=== PATIENT | male | born 1945 | race Two or more races ===

== ENCOUNTER → 2017-12-03 | Outpatient (CLI) | payer SELFPAY ==
[2017-12-03 16:03] LABS: BASOPHILS % (AUTO) 1.3 % (0.0-2.0); EOSINOPHILS % (AUTO) 2.7 % (0.0-3.0); HEMATOCRIT 45.7 % (42.0-52.0); HEMOGLOBIN 15.8 G/DL (14.2-18.0); LYMPHOCYTES % (AUTO) 29.6 % (20.0-45.0); MEAN CORPUSCULAR VOLUME 83 FL (80-99); MONOCYTES % (AUTO) 7.5 % (1.0-10.0); NEUTROPHILS % (AUTO) 58.9 % (45.0-75.0); PLATELET COUNT 193 K/UL (150-450); RED BLOOD COUNT 5.48 M/UL (4.70-6.10); RED CELL DISTRIBUTION WIDTH 11.4 % (11.6-14.8); WHITE BLOOD COUNT 6.3 K/UL (4.8-10.8)
--- NOTE | 2017-12-03 16:16 | Diagnostic Imaging Report ---
Indication: Cough Technique: One view of the chest Comparison: none Findings: Suboptimal inspiration. Lungs and pleural spaces are clear. The heart size is normal. There is a right shoulder prosthesis Impression: No acute process
[2017-12-03 16:17] LABS: ANION GAP 8 mmol/L (5-15); BLOOD UREA NITROGEN 25 mg/dL (7-18); CALCIUM 8.3 MG/DL (8.5-10.1); CARBON DIOXIDE 29 MMOL/L (21-32); CHLORIDE 105 MMOL/L (98-107); CREATININE 1.1 MG/DL (0.55-1.30); SODIUM 142 MMOL/L (136-145)
[2017-12-03 16:20] LABS: INR 0.9 (0.9-1.1)
[2017-12-03 16:21] LABS: APPEARANCE,URINE CLEAR; BILIRUBIN, URINE NEGATIVE (NEGATIVE); GLUCOSE, URINE (UA) NEGATIVE (NEGATIVE); KETONES,URINE NEGATIVE (NEGATIVE); LEUKOCYTE ESTERASE ,URINE 1+ (NEGATIVE); NITRITE,URINE NEGATIVE (NEGATIVE); PH,URINE 5 (4.5-8.0); PROTEIN,URINE NEGATIVE (NEGATIVE); UROBILINOGEN,URINE NORMAL MG/DL (0.0-1.0)
[2017-12-03 16:22] LABS: COLOR,URINE YELLOW
--- NOTE | 2017-12-04 05:31 | Consultation ---
DATE OF CONSULTATION: 12/03/2017 CARDIOLOGY CONSULTATION CONSULTING PHYSICIAN: Sunil Abbott M.D. REFERRING PHYSICIAN: Lamont Ochoa M.D. REASON FOR EVALUATION: Preoperative risk assessment. HISTORY OF PRESENT ILLNESS: The patient is an elderly gentleman, 72-year-old male, who presents for evaluation of preoperative risk assessment. He is fairly active although he does have arthritis, which limits some of his activities. He is able to do bicycling approximately 15 to 20 minutes on a daily basis. He never has to stop his activities because of any chest pain or pressure. There is no PND. No orthopnea. No palpitation. No dizziness or lightheadedness in any position. He lies basically flat with one pillow. He has never had any cardiac issues. PAST MEDICAL HISTORY: Positive for high blood pressure. No history of heart attack. No diabetes. No hyperlipidemia. No cancer. No stroke. No hepatitis or tuberculosis. No asthma or emphysema. No ulcers. No kidney problems, liver problems, thyroid problems, or anemia. He does have arthritis involving his knees and his shoulders. He has had shoulder surgery on the right side previously and he is having the left side performed on of this week. He does not have any HIV or prostate problems. No other medical problems. He is usually seen by a stem setter once a year. He actually seemed to be normal according to himself. MEDICATIONS: He takes Nexium 40 mg a day, Diovan 80 mg a day, and joint medications. He is taking vitamin D once a day, Ambien 5 mg at nighttime, and Ultracet as needed. He has been off of ibuprofen and Celebrex for the past few days as the patient has upcoming surgery. ALLERGIES: None. SOCIAL HISTORY: He does not smoke. He does drink two alcoholic drinks per day. No drug use. He is an actor. REVIEW OF SYSTEMS: GASTROINTESTINAL: Negative. GENITOURINARY: Negative. PULMONARY: Negative. CONSTITUTIONAL: Negative. NEUROLOGIC: Negative. PHYSICAL EXAMINATION: GENERAL: Shows to be an elderly gentleman, in no respiratory distress. VITAL SIGNS: Blood pressure 147/74 with temperature 97.4. NECK: Supple. No jugular venous distention. No carotid bruits are noted. LUNGS: Clear to auscultation and percussion. CARDIAC: S1 is normal. S2 is normal. Regular rate and rhythm. No heaves. No thrills. No gallops or rubs are noted. ABDOMEN: Soft and nontender. Positive bowel sounds. EXTREMITIES: There is no clubbing, cyanosis, nor is there any edema. NEUROLOGICAL: He is awake, alert, and responsive. Moves all four extremities. LABORATORY AND DIAGNOSTIC DATA: His electrocardiogram performed shows normal sinus rhythm, leftward axis. No ST or T wave abnormalities of any significant degree. His white count is 6.3 with a hemoglobin of 15.8 and platelet count of 193,000. His sodium is 142, potassium 4.0, chloride 105, bicarb 29, BUN 25, creatinine 1.1, and glucose of 118. Calcium is 8.3. INR 0.9 and PTT of 24. His urinalysis is clear. He does have 1+ leukocyte esterase, 0 to 2 rbc's, and 0 to 2 wbc's. Chest x-ray performed showed suboptimal inspiration. Lungs and pleural spaces are otherwise clear. The heart is normal in size and the right shoulder prosthesis is noted. No acute processes otherwise. ASSESSMENT: 1. Degenerative joint disease involving the shoulder. 2. History of hypertension treated with Diovan. PLAN: This patient was seen in cardiac consultation. The patient has no signs and symptoms of congestive heart failure or acute coronary syndrome. He has tolerated prior surgery on his right shoulder before without any problems. He has not had any cardiac history. No risk factors for coronary artery disease and is felt to have acceptable risks to undergo proposed shoulder surgery. Sunil Abbott M.D. DR: JOSE JOB#: [id number] CC: Lamont Ochoa M.D.; Ph#: [phone]; Fax#: [phone]
--- NOTE | 2017-12-04 16:36 | Cardiology Report ---
APPROVED REPORT EKG Measurement Heart [id number] [place] [id number] Normal sinus rhythm Normal ECG
[2017-12-04 17:11] LABS: ALANINE AMINOTRANSFERASE 39 U/L (12-78); ALKALINE PHOSPHATASE 80 U/L (46-116); ASPARTATE AMINO TRANSFERASE 22 U/L (15-37); BILIRUBIN,DIRECT < 0.1 MG/DL (0.0-0.3); BILIRUBIN,TOTAL 0.3 MG/DL (0.2-1.0); CHOLESTEROL 156 MG/DL (< 200); HDL CHOLESTEROL 41 MG/DL (40-60); TRIGLYCERIDES 220 MG/DL (30-150)
== END | disposition home or self-care (01) ==
LOC: LAB 15:34
DX: M19.019 Primary osteoarthritis, unspecified shoulder (principal); I10 Essential (primary) hypertension; Z96.611 Presence of right artificial shoulder joint
CPT/HCPCS: 36415; 71045; 80048; 80061; 80076; 81001; 84153; 84443; 85025; 85610; 85730; 93005